=== PATIENT | male | born 1960 | race Caucasian/White ===

== ENCOUNTER 2025-01-04 06:19 | Outpatient (CLI) | payer BC, SELFPAY ==
--- NOTE | 2025-01-04 07:43 | P.ANES_ITS ---
Anesthesia Charges Start Date/Time Anesthesia Start Date: 01/04/25 Anesthesia Start Time: 07:15 Stop Date/Time Anesthesia Stop Date: 01/04/25 Anesthesia Stop Time: 07:35 Coding CPT Codes CPT Codes: DALLINS LWR INTST NDSC NOS - [id number] ([id number]) P2 - PATIENT W/MILD SYST DISEASE, QZ - SUPERVISOR OPENING AND PICKING SVC W/O FINANCIAL COUNSELOR BY
--- NOTE | 2025-01-04 07:43 | W.ANESCHARGE ---
Anesthesia Charges Start Date/Time Anesthesia Start Date: 01/04/25 Anesthesia Start Time: 07:15 Stop Date/Time Anesthesia Stop Date: 01/04/25 Anesthesia Stop Time: 07:35 Coding CPT Codes CPT Codes: DALLINS LWR INTST NDSC NOS - [id number] ([id number]) P2 - PATIENT W/MILD SYST DISEASE, QZ - CUTTING MACHINE OPERATOR SVC W/O JEWEL GAUGER BY
== END 2025-01-04 06:20 | disposition home or self-care (01) ==
PROVIDERS: PCP Family Medicine; Visit Provider Internal Medicine Gastroenterology
DX: Z12.11 Encounter for screening for malignant neoplasm of colon (principal); D12.8 Benign neoplasm of rectum; K57.30 Diverticulosis of large intestine without perforation or abscess without bleeding; K64.4 Residual hemorrhoidal skin tags
CPT/HCPCS: 00811; 00812; 45385; 88305; J2704